=== PATIENT | male | born 1970 | race Caucasian/White ===

== ENCOUNTER → 2024-09-21 | Outpatient (CLI) | payer OTHER ==
[~2024-09-21] VITALS: Ht 180.3 cm; Wt 95.3 kg
[2024-09-21] VITALS (11 sets, daily range): BP systolic 101–146; BP diastolic 70–101; PULSE 80–92; TEMP 98
[~2024-09-21] MED LIST: ELIQUIS 2.5 PO; NEURONTIN100 MG/CAP PO; PLETAL 100MG T100 MG PO; PRINZIDE 12.5 M1 TAB PO
[2024-09-21 12:27] LABS: MEAN CELL VOLUME 92 fl (80.0-100.0); MEAN CORPUSCULAR HGB CONC 35 g/dl (33.0-37.0); PLATELET COUNT 225 K/mm3 (130-400); RED BLOOD COUNT 6.25 M/mm3 (4.20-5.60); REDCELL DISTRIBUTION WIDTH-CV 13.2 % (11.5-14.5)
[2024-09-21 12:34] LABS: HEMATOCRIT 57.6 % (42.0-52.0); HEMOGLOBIN 20.1 g/dl (13.5-18.0); MEAN CORPUSCULAR HEMOGLOBIN 32 pg (27-31)
[2024-09-21 12:52] LABS: EOSINOPHIL 2 % (0-4); LYMPHOCYTE 25 % (20.0-51.0); NEUTROPHILS 62 % (42.0-75.2); PLATELET ESTIMATE NORMAL (NORMAL)
--- NOTE | 2024-09-21 14:01 | NUR ---
SPECIMEN COLLECTED AT 1321.
--- NOTE | 2024-09-21 14:19 | NUR ---
PATIENT HAS COMPLETED HIS RECOVERY TIME. IV REMOVED WITHOUT ISSUE. PATIENT DRESSED HIMSELF WITHOUT ISSUE. PATIENT HAS ALL PERSONAL ITEMS. ESCORTED PATIENT OUT TO PATIENT ENTRANCE VIA WHEELCHAIR. PATIENT GOT INTO THE FRONT PASSENGER SEAT WITHOUT ISSUE. ALL NEEDS MET.
== END ==
LOC: COL.RAD 11:25
PROVIDERS: Internal Medicine
DX: I82.501 Chronic embolism and thrombosis of unspecified deep veins of right lower extremity (principal)